=== PATIENT | female | born 2000 | race Caucasian/White ===

== ENCOUNTER 2021-02-04 15:30 | Emergency (ER) | payer OTHER ==
[2021-02-04 19:19] LABS: BUN/CREATININE RATIO 15 (0-10)
[2021-02-04 19:26] LABS: RED BLOOD COUNT 4.25 M/UL (4.00-5.10); WHITE BLOOD COUNT 8.9 K/UL (4.5-11.0)
[2021-02-04] MEDS ORDERED: VISTARIL 50 MG50 MG PO (19:55)
== END 2021-02-04 20:24 | disposition home or self-care (01) ==
LOC: ER1 15:30
PROVIDERS: Physician Assistant Medical
DX: F41.0 Panic disorder [episodic paroxysmal anxiety] (principal); M41.9 Scoliosis, unspecified; Z79.899 Other long term (current) drug therapy
CPT/HCPCS: 71045; 80053; 81001; 84439; 84443; 84484; 84703; 85025; 93005; 99284

== ENCOUNTER 2022-01-28 17:12 | Emergency (ER) | payer OTHER ==
[~2022-01-28 17:12] MED LIST: VISTARIL 50 MG50 MG PO
== END 2022-01-28 20:02 | disposition home or self-care (01) ==
LOC: ER1 17:12
DX: S16.1XXA Strain of muscle, fascia and tendon at neck level, initial encounter (principal); S39.012A Strain of muscle, fascia and tendon of lower back, initial encounter; V49.9XXA Car occupant (driver) (passenger) injured in unspecified traffic accident, initial encounter
CPT/HCPCS: 72100; 72125; 99284